=== PATIENT | male | born 1985 | race African-American/Black ===

== ENCOUNTER 2016-07-29 12:16 | Emergency (ER) | payer OTHER ==
[~2016-07-29] VITALS: Ht 175.3 cm; Wt 83.9 kg
--- NOTE | 2016-07-29 12:52 | ED UPPER/LOWER EXTREMITY COMPL ---
History of Present Illness General Chief Complaint: Laceration Procedure Stated Complaint: LAC TO WRIST Source: patient Exam Limitations: no limitations Vital Signs & Intake/Output Vital Signs & Intake/Output Vital Signs Date Time Temp Pulse Resp B/P B/P Pulse O2 O2 Flow FiO2 Mean Ox Delivery Rate 07/29 1411 98.0 80 20 128/78 99 Room Air 07/29 1223 98.3 80 16 126/88 98 Room Air Allergies Coded Allergies: NO KNOWN ALLERGIES (09/29/10) Reconcile Medications No Known Home Medications Triage Note: PT STATES HE CUT HIS RIGHT WRIST CUTTING DOWN A TREE. BLEEDING CONTROLED AT TRIAGE Triage Nurses Notes Reviewed? yes Onset: Abrupt Duration: constant Timing: single episode today Severity: mild Severity Numbers: 3 Pain/Injury Location: Right: Wrist. 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 Patient is right arm dominant. Tetanus is up-to-date. (ANGEL HAMM) Past History Travel History Traveled to [place] past 21 day No Medical History Any Pertinent Medical History? none Surgical History Surgical History: non-contributory Psychosocial History What is your primary language Mongolian Tobacco Use: Current Not Daily Daily Tobacco Use Amount/Type: =< 4 Cigarettes daily ETOH Use: occasional use Illicit Drug Use: denies illicit drug use Family History Hx Contributory? No (ANGEL HAMM) Review of Systems Review of Systems Constitutional: Reports: no symptoms. EENTM: Reports: no symptoms. Respiratory: Reports: no symptoms. Cardiovascular: Reports: no symptoms. Gastrointestinal/Abdominal: Reports: no symptoms. Genitourinary: Reports: no symptoms. Musculoskeletal: Reports: see HPI. Skin: Reports: see HPI. Neurological/Psychological: Reports: no symptoms. Hematologic/Endocrine: Reports: see HPI, bleeding. Immunological: Reports: no symptoms. All Other Systems: Reviewed and Negative (ANGEL HAMM) Physical Exam Physical Exam General Appearance: no apparent distress, alert, comfortable Neurologic/Tendon: normal sensation, normal motor functions, normal tendon functions, responds to pain, no evidence tendon injury, no pulse deficit Skin: normal color Comments: Well-developed well-nourished no apparent distress. HEENT: Atraumatic, extraocular motion intact Neck: Supple, no lymphadenopathy Back: Nontender Respiratory: No respiratory distress Neuro: Alert and oriented x3 Psych: Mood affect normal, normal memory normal judgment. Diagram Right Arm Front 1) 4 cm x 2 cm irregular subcutaneous laceration with multiple jagged borders 5 out of 5 resisted range of motion noted with wrist flexion and wrist extension wrist radial deviation ulnar deviation full class a lineman strength no tendon deficit no exposed bone No active bleeding (ANGEL HAMM) Progress Differential Diagnosis: arterial insufficiency, compartment syndrome, contusion, dislocation, DVT, fracture, gout, septic arthritis, sprain, tendon injury Plan of Care: Current Medications Sig/Ti Start time Last Medication Dose Stop Time Status Admin Ibuprofen 600 MG ONCE ONE 07/29 131 UNVr (Motrin) 07/29 1316 Patient on initial examination has no concerns of tendon deficit margins were revised with suture placement (ANGEL HAMM) Departure Departure Disposition: HOME OR SELF CARE Condition: Stable Clinical Impression Primary Impression: Laceration of right wrist Referrals: PATIENT HAS NO PRIMARY CARE DR (PCP/Family) Additional Instructions: As discussed begin to apply bacitracin to the area once a day for the following 4 days then leave area open and dry and clean to improve healing. If you note signs of infection redness, pain, swelling, discharge return to emergency room. Return to emergency room in 7-10 days for suture removal. Begin over-the- counter ibuprofen if needed for pain and inflammation. Please use the bandages provided to the emergency room and change the dressings once a day Departure Forms: Customer Survey General Discharge Information Prescriptions: Current Visit Scripts No Known Home Medications (ANGEL HAMM) PA/REVENUE AUDIT CLERK Co-Sign Statement Statement: ED Attending supervision documentation- [] I saw and evaluated the patient. I have also reviewed all the pertinent lab results and diagnostic results. I agree with the findings and the plan of care as documented in the PA's/REVENUE AUDIT CLERK's documentation. [X] I have reviewed the ED Record and agree with the PA's/REVENUE AUDIT CLERK's documentation. [] Additions or exceptions (if any) to the PAs/REVENUE AUDIT CLERK's note and plan are summarized below: [] (JOHN TYLER,JARRET Gordon) Procedures Laceration/Wound Repair Laceration/Wound Repair: Wound Location: upper extremity (RIGHT WRIST) Wound's Depth, Shape: irregular, subcutaneous Wound Length (cm): 4 Wound Explored: clean, no foreign body removed, irrigated extensively Irrigated w/ Saline (ccs): 500 Betadine Prep? Yes Anesthesia: 1% lidocaine Volume Anesthetic (ccs): 5 Wound Repaired With: sutures Suture Size/Type: 5:0 (#7), 4:0 (#2) Number of Sutures: 9 Layer Closure? No Progress: In total #9 sutures were placed and which margins were revised bacitracin Telfa pad and Kerlix were applied. Patient tolerated well. (JAVID CLARKE,ANGEL)
[2016-07-29 14:11] VITALS: BP 128/78
== END 2016-07-29 14:14 ==
LOC: ERH 12:16
DX: S61.511A Laceration without foreign body of right wrist, initial encounter (principal); W27.1XXA Contact with garden tool, initial encounter; Y93.H2 Activity, gardening and landscaping; Y92.9 Unspecified place or not applicable